=== PATIENT | male | born 1985 | race African-American/Black ===

== ENCOUNTER 2017-03-24 16:48 | Emergency (ER) | payer MEDICAID ==
[2017-03-24 16:56] VITALS: BP 128/73
--- NOTE | 2017-03-24 17:37 | EDM.PDOC ---
ED HPI Trauma - General Chief Complaint: Upper Extremity Injury/Pain Stated Complaint: right wrist injury Time Seen by Provider: 03/24/17 17:21 Source: Reports: Patient History Limitations: Reports: No limitations - History of Present Illness INITIAL COMMENTS - FREE TEXT/NARRATIVE: Patient woke up with soreness and mild swelling on back of right hand near wrist this morning. Denies any specific injury. Was moving boxes/furniture yesterday. Had some discomfort before going to bed last night. No history of similar issues in past. No other complaints. Allergies/ADRs: Allergies No Known Allergies Allergy (Verified 03/24/17 16:49) Home Medications: Ambulatory Orders . [No Known Home Meds] 03/24/17 [Confirmed 03/24/17] Past Medical History Other HEENT History: Nasal fx Social & Family History - Tobacco Use Smoking Status *Q: Current Every Day Smoker Years of Tobacco use: 15 Packs/Tins Daily: 1 - Caffeine Use Caffeine Use: Reports: Soda Caffeine Use Comment: Occasional Review of Systems - Review of Systems Review Of Systems: See Below Constitutional: Reports: no symptoms Musculoskeletal: Reports: hand pain. Denies: arm pain, muscle stiffness Skin: Reports: other (Swelling on back of hand/right). Denies: bruising, pruritis, rash, erythema Neurological: Reports: No Symptoms. Denies: Numbness, Tingling, Weakness Trauma Exam - Physical Exam Exam: See Below Exam Limited By: No limitations General Appearance: Reports: alert, WD/WN, no apparent distress Head: Reports: atraumatic, normocephalic Eyes: bilateral eye: EOMI, PERRL Respiratory Exam: Reports: no respiratory distress Extremities: Reports: other (Tender over lower 4th and 5th right metacarpals dorsally. No specific wrist tenderness. Hand otherwise non-tender. NVI. Mild tissue edema over same distribution. Wrist/fingers full ROM. No erythema or bruising noted. Non-focal exam proximal to wrist. ) Course - Vital Signs Last Recorded V/S: Last Vital Signs Temp 37.1 C 03/24/17 16:50 Pulse 99 03/24/17 16:50 Resp 20 03/24/17 16:50 BP 128/73 03/24/17 16:50 Pulse Ox 100 03/24/17 16:50 - Orders/Labs/Meds Orders: Active Orders 24 hr Category Date Time Status Hand Comp Min 3V Rt [CR] Stat Exams 03/24/17 16:59 Taken - Radiology Interpretation Free Text/Narrative:: Hand xray unremarkable for fracture. - Re-Assessments/Exams Free Text/Narrative Re-Assessment/Exam: 03/24/17 21:14 Wrist splint placed on right hand. Patient felt more comfortable with the subsequent compression. Possible broken blood vessel vs tendonitis. Conservative treatment. Splint/rest/ice/elevate. Watch for changes. Follow up at clinic if not improved within 2-3 days. Departure - Departure Time of Disposition: 17:35 Disposition: Home, Self-Care 01 Condition: good Clinical Impression: Right wrist pain, Pain of right hand Referrals: Aden Greenwood SUPERVISOR CARDING [Primary Care Provider] - Forms: ED Department Discharge Additional Instructions: Avoid lifting using right hand. Avoid twisting wrist. Wear splint for comfort and compression. Ice sore area for comfort. If pain is not improving within several days, follow up at clinic on fore re-evaluation. OK to use Aleve 1-2 tablets twice a day for pain/swelling. - My Orders Last 24 Hours: My Active Orders 03/24/17 16:59 Hand Comp Min 3V Rt [CR] Stat - Assessment/Plan Last 24 Hours: My Active Orders 03/24/17 16:59 Hand Comp Min 3V Rt [CR] Stat
== END 2017-03-24 17:40 | disposition home or self-care (01) ==
LOC: LL.ED 16:48
DX: M25.531 Pain in right wrist (principal); M79.641 Pain in right hand; F17.210 Nicotine dependence, cigarettes, uncomplicated
CPT/HCPCS: 29105; 73130-RT; 99283

== ENCOUNTER 2017-05-19 06:15 | Emergency (ER) | payer MEDICAID ==
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
[2017-05-19 07:00] LABS: CHLORIDE,CL 103 mmol/L (98-107); SODIUM,NA 139 mmol/L (136-145)
[2017-05-19] MEDS ORDERED: Potassium Chloride 10 MEQ Tab.ER PO ONE (07:09)
[2017-05-19] MEDS ORDERED: Bacitracin/Neomycin/Polymyxin B Oint 0.9 GM U/D Packet TOP ONE (07:51)
[2017-05-19] MEDS ORDERED: Diphtheria,Pertussis(Acell),Tetanus Vaccine 0.5 ML SDV IM ONE (07:57)
[2017-05-19] MEDS ORDERED: Ibuprofen 400 MG Tab PO ONE (08:17)
[2017-05-19 12:57] VITALS: BP 138/54
== END 2017-05-19 09:00 | disposition home or self-care (01) ==
LOC: LL.ED 06:15
DX: S06.0X0A Concussion without loss of consciousness, initial encounter (principal); S01.01XA Laceration without foreign body of scalp, initial encounter; S01.511A Laceration without foreign body of lip, initial encounter; S20.222A Contusion of left back wall of thorax, initial encounter; F17.210 Nicotine dependence, cigarettes, uncomplicated; Y04.0XXA Assault by unarmed brawl or fight, initial encounter; Y92.009 Unspecified place in unspecified non-institutional (private) residence as the place of occurrence of the external cause
CPT/HCPCS: 12002; 36415; 70450; 80053; 80305; 85025; 85610; 90471; 90715; 99284; A9270; G0480

== ENCOUNTER 2017-07-09 16:31 | Emergency (ER) | payer MEDICAID ==
[2017-07-09 16:36] VITALS: BP 133/62
--- NOTE | 2017-07-09 17:15 | EDM.PDOC ---
ED HPI GENERAL MEDICAL PROBLEM - General Chief Complaint: General Stated Complaint: Cough, L Abd Pain Time Seen by Provider: 07/09/17 16:55 Source of Information: Reports: Patient History Limitations: Reports: No Limitations - History of Present Illness INITIAL COMMENTS - FREE TEXT/NARRATIVE: Patient presents for complaint of cough and left sided abdominal discomfort. Has had loose stools for several days. No nausea/emesis. No fever. Is smoker. Thinks he wheezes a bit when he coughs. Cough is dry. ROS otherwise negative. Left Abdomen Pain Score (Numeric/FACES): 7 - Related Data Allergies Allergy/AdvReac Type Severity Reaction Status Date / Time No Known Allergies Allergy Verified 03/24/17 16:49 Home Meds: Home Meds Albuterol [IJD: Albuterol HFA] 1 puff .XX ASDIRECTED PRN #8 gm 07/09/17 [Rx] Past Medical History Other HEENT History: Nasal fx Social & Family History - Tobacco Use Smoking Status *Q: Current Every Day Smoker Years of Tobacco use: 15 Packs/Tins Daily: 0.5 - Caffeine Use Caffeine Use: Reports: Soda Caffeine Use Comment: Occasional - Recreational Drug Use Recreational Drug Use: Yes Recreational Drug Type: Reports: Marijuana/Hashish ED ROS GENERAL - Review of Systems Review Of Systems: See Below Constitutional: Reports: No Symptoms HEENT: Reports: Rhinitis (mild nasal drainage. ). Denies: Ear Pain, Throat Pain , Throat Swelling Respiratory: Reports: Cough. Denies: Shortness of Breath, Pleuritic Chest Pain , Sputum, Hemoptysis Cardiovascular: Reports: No Symptoms. Denies: Chest Pain GI/Abdominal: Reports: Abdominal Pain, Diarrhea. Denies: Black Stool, Bloody Stool, Constipation, Decreased Appetite, Difficulty Swallowing, Distension, Flatus, Hematemesis, Hematochezia, Melena, Nausea, Vomiting : Reports: No Symptoms Musculoskeletal: Reports: No Symptoms Skin: Reports: No Symptoms Neurological: Reports: No Symptoms. Denies: Headache Psychiatric: Reports: No Symptoms ED EXAM, GENERAL - Physical Exam Exam: See Below Exam Limited By: No Limitations General Appearance: Alert, WD/WN, No Apparent Distress Eye Exam: Bilateral Eye: EOMI, PERRL Ears: Normal External Exam, Normal Canal, Hearing Grossly Normal Nose: Normal Inspection Throat/Mouth: Normal Inspection, Normal Voice, No Airway Compromise Head: Atraumatic, Normocephalic Neck: Normal Inspection, Supple, Non-Tender, Full Range of Motion. No: Lymphadenopathy (L), Lymphadenopathy (R) Respiratory/Chest: No Respiratory Distress, Lungs Clear, Normal Breath Sounds, No Accessory Muscle Use, Chest Non-Tender. No: Rales, Rhonchi, Wheezing Cardiovascular: Normal Peripheral Pulses, Regular Rate, Rhythm, No Edema, No Murmur Peripheral Pulses: 2+: Radial (L), Radial (R) GI/Abdominal: Normal Bowel Sounds, Soft, Non-Tender, No Distention, No Abnormal Bruit Back Exam: No: CVA Tenderness (L), CVA Tenderness (R) Extremities: Normal Inspection, Normal Capillary Refill Neurological: Alert, Oriented, Normal Cognition, Normal Gait Psychiatric: Normal Affect Skin Exam: Warm, Dry, Intact, Normal Color Course - Vital Signs Last Recorded V/S: Last Vital Signs Temp 36.8 C 07/09/17 16:35 Pulse 79 07/09/17 16:35 Resp 16 07/09/17 16:35 BP 133/62 07/09/17 16:35 Pulse Ox 99 07/09/17 16:35 - Orders/Labs/Meds Orders: Active Orders 24 hr Category Date Time Status Abdomen 2V AP Flat Upright [CR] Stat Exams 07/09/17 16:39 Taken Chest 2V [CR] Stat Exams 07/09/17 16:38 Taken CMP [COMPREHENSIVE METABOLIC PN,CMP] [CHEM] Stat Lab 07/09/17 16:40 Ordered UA W/MICROSCOPIC [URIN] Stat Lab 07/09/17 16:40 Uncollected Labs: Laboratory Tests 07/09/17 Range/Units 17:00 WBC 5.2 (4.0-10.2) K/uL RBC 4.73 (4.33-5.41) M/uL Hgb 14.6 (13.1-16.8) g/dL Hct 42.2 (39.0-49.0) % MCV 89.2 (84.0-98.0) fL MCH 30.9 (28.2-33.3) pg MCHC 34.6 (31.7-36.0) g/dL RDW 14.1 (11.2-14.1) % Plt Count 222 (150-350) K/uL Neut % (Auto) 47.5 (45.0-80.0) % Lymph % (Auto) 32.0 (10.0-50.0) % [place] % (Auto) 13.5 (2.0-14.0) % Eos % (Auto) 6.2 H (0.0-5.0) % Baso % (Auto) 0.8 (0.0-2.0) % Neut # (Auto) 2.46 (1.40-7.00) K/uL Lymph # (Auto) 1.66 (0.50-3.50) K/uL [place] # (Auto) 0.70 (0.00-1.00) K/uL Eos # (Auto) 0.32 (0.00-0.50) K/uL Baso # (Auto) 0.04 (0.00-0.20) K/uL - Radiology Interpretation Free Text/Narrative:: Did not note pneumonia upon review of chest xray. Abdomen shows increased bowel gas LUQ, no air/fluid levels. No sign of obstruction. - Re-Assessments/Exams Free Text/Narrative Re-Assessment/Exam: 07/09/17 17:24 CBC normal. Bun/Cr mildly elevated. Suspect this is due to mild dehydration. Patient encourage to drink water and keep hydrated. Rx for Albuterol inhaler dispensed to help with cough. Suspect viral syndrome given the cough, loose stools, and abdominal discomfort. Encouraged patient to quit smoking. Note given to patient for work. He is to follow up as needed if this does not appear to follow a normal viral course. Patient unable to provide urine specimen prior to discharge. He denied having any symptoms of UTI. Departure - Departure Time of Disposition: 17:13 Disposition: Home, Self-Care 01 Condition: Good Clinical Impression: Viral illness - Discharge Information Prescriptions: Albuterol [IJD: Albuterol HFA] 1 puff .XX ASDIRECTED PRN #8 gm PRN Reason: Cough Instructions: Albuterol inhalation powder Referrals: Aden Greenwood, GENERAL SUPERINTENDENT [Primary Care Provider] - Forms: ED Department Discharge, ED Return to Work/School Form Additional Instructions: Watch for changes. Follow up as needed if this does not follow a normal viral course - My Orders Last 24 Hours: My Active Orders 07/09/17 16:38 Chest 2V [CR] Stat 07/09/17 16:39 Abdomen 2V AP Flat Upright [CR] Stat 07/09/17 16:40 CMP [COMPREHENSIVE METABOLIC PN,CMP] [CHEM] Stat UA W/MICROSCOPIC [URIN] Stat - Assessment/Plan Last 24 Hours: My Active Orders 07/09/17 16:38 Chest 2V [CR] Stat 07/09/17 16:39 Abdomen 2V AP Flat Upright [CR] Stat 07/09/17 16:40 CMP [COMPREHENSIVE METABOLIC PN,CMP] [CHEM] Stat UA W/MICROSCOPIC [URIN] Stat
[2017-07-09 17:19] LABS: CHLORIDE,CL 107 mmol/L (98-107); SODIUM,NA 141 mmol/L (136-145)
== END 2017-07-09 17:15 | disposition home or self-care (01) ==
LOC: LL.ED 16:31
DX: B34.9 Viral infection, unspecified (principal); F17.210 Nicotine dependence, cigarettes, uncomplicated
CPT/HCPCS: 36415; 71020; 74020; 80053; 85025; 99284

== ENCOUNTER 2017-09-03 19:07 | Emergency (ER) | payer MEDICAID ==
[2017-09-03] MEDS ORDERED: Ibuprofen 400 MG Tab PO ONE (19:14)
[2017-09-03 19:30] VITALS: BP 137/99
--- NOTE | 2017-09-03 19:35 | EDM.PDOC ---
ED HPI GENERAL MEDICAL PROBLEM - General Chief Complaint: Upper Extremity Injury/Pain Stated Complaint: right shoulder pain Time Seen by Provider: 09/03/17 19:20 Source of Information: Reports: Patient History Limitations: Reports: No Limitations - History of Present Illness INITIAL COMMENTS - FREE TEXT/NARRATIVE: Patient is a 32-year-old who works at [employer] this morning he woke up with right shoulder pain especially abduction and abduction with no problem time range of motion was assessed and patient is able to have significant bleeding good range of motion with active assistance Onset: Today Duration: Hour(s): Location: Reports: Upper Extremity, Right Quality: Reports: Ache, Throbbing Severity: Moderate Improves with: Reports: Movement, Rest Worsens with: Reports: Rest Context: Reports: Other (Unknown) Associated Symptoms: Reports: No Other Symptoms - Related Data Allergies Allergy/AdvReac Type Severity Reaction Status Date / Time No Known Allergies Allergy Verified 09/03/17 19:08 Home Meds: Home Meds . [No Known Home Meds] 09/03/17 [History] Past Medical History Other HEENT History: Nasal fx Social & Family History - Tobacco Use Smoking Status *Q: Current Every Day Smoker Years of Tobacco use: 15 Packs/Tins Daily: 0.5 - Caffeine Use Caffeine Use: Reports: Soda Caffeine Use Comment: Occasional - Recreational Drug Use Recreational Drug Use: Yes Recreational Drug Type: Reports: Marijuana/Hashish Review of Systems - Review of Systems Review Of Systems: See Below Constitutional: Reports: No Symptoms Eyes: Reports: No Symptoms Ears: Reports: No Symptoms Nose: Reports: No Symptoms Mouth/Throat: Reports: No Symptoms Respiratory: Reports: No Symptoms Cardiovascular: Reports: No Symptoms GI/Abdominal: Reports: No Symptoms Genitourinary: Reports: No Symptoms Musculoskeletal: Reports: Other (Patient woke up with right shoulder pain he does complain of pinpoint tenderness in the pectoralis area of the right shoulder) Skin: Reports: No Symptoms Neurological: Reports: No Symptoms Psychiatric: Reports: No Symptoms ED EXAM, GENERAL - Physical Exam Exam: See Below Exam Limited By: No Limitations General Appearance: Alert, WD/WN, No Apparent Distress Ears: Normal External Exam, Normal Canal, Hearing Grossly Normal, Normal TMs Ear Exam: Bilateral Ear: Auricle Normal, Canal Normal, TM normal Nose: Normal Inspection, Normal Mucosa, No Blood Throat/Mouth: Normal Inspection, Normal Lips, Normal Teeth, Normal Gums, Normal Oropharynx, Normal Voice, No Airway Compromise Head: Atraumatic, Normocephalic Neck: Normal Inspection, Supple, Non-Tender, Full Range of Motion Respiratory/Chest: No Respiratory Distress, Lungs Clear, Normal Breath Sounds, No Accessory Muscle Use, Chest Non-Tender Cardiovascular: Normal Peripheral Pulses, Regular Rate, Rhythm, No Edema, No Gallop, No JVD, No Murmur, No Rub GI/Abdominal: Normal Bowel Sounds, Soft, Non-Tender, No Organomegaly, No Distention, No Abnormal Bruit, No Mass (Male) Exam: No Hernia, Normal Inspection, Normal Prostate, Circumcised Rectal (Males) Exam: Normal Exam, Normal Rectal Tone, Prostate Normal Back Exam: Normal Inspection, Full Range of Motion, NT Extremities: Limited Range of Motion, Other (With pain to abduction and adduction) Neurological: Alert, Oriented, CN II-XII Intact, Normal Cognition, Normal Gait, Normal Reflexes, No Motor/Sensory Deficits Psychiatric: Normal Affect, Normal Mood Skin Exam: Warm, Dry, Intact, Normal Color, No Rash Lymphatic: No Adenopathy Course - Orders/Labs/Meds Meds: Medications Discontinued Medications Generic Name Dose Route Start Last Admin Trade Name Freq PRN Reason Stop Dose Admin Ibuprofen 400 mg 09/03/17 19:14 09/03/17 19:22 Motrin PO 09/03/17 19:15 400 mg ONETIME ONE Administration Departure - Departure Time of Disposition: 19:34 Disposition: Home, Self-Care 01 Clinical Impression: Rotator cuff tear - Discharge Information Referrals: Aden Greenwood EXPENDITURE REQUISITION CLERK [Primary Care Provider] - Care Plan Goals: Patient sent home with exercise of rotation and Motrin 400 every 6 hours patient may return to work as tolerated he is to follow-up with primary in clinic if not better for MRI
== END 2017-09-03 20:00 | disposition home or self-care (01) ==
LOC: LL.ED 19:07
DX: M75.101 Unspecified rotator cuff tear or rupture of right shoulder, not specified as traumatic (principal); F17.210 Nicotine dependence, cigarettes, uncomplicated
CPT/HCPCS: 99283; A9270

== ENCOUNTER 2017-11-14 01:10 | Emergency (ER) | payer BC, OTHER ==
[2017-11-14] MEDS ORDERED: predniSONE 20 MG Tab PO ONE (02:06)
[2017-11-14] MEDS ORDERED: Ketorolac 10 MG Tab PO ONE (02:07)
[2017-11-14] MEDS ORDERED: Cyclobenzaprine 10 MG Tab PO ONE (02:07)
--- NOTE | 2017-11-14 02:15 | EDM.PDOC ---
ED HPI GENERAL MEDICAL PROBLEM - General Chief Complaint: Chest Pain Stated Complaint: right sided chest pain Time Seen by Provider: 11/14/17 01:54 Source of Information: Reports: Patient History Limitations: Reports: No Limitations - History of Present Illness INITIAL COMMENTS - FREE TEXT/NARRATIVE: Patient brought in by EMS after he had complaint of right sided chest pain while at work. 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 He suddenly developed right anterior chest pain around right clavicle level. Notes it is worse with deep breathing as well as when he turns his head. Better if he keeps still. Had brief episode of nausea/dizziness while in ambulance on way to ER. Denies prior similar episodes of pain. Denies any specific injury. No SOB. No respiratory changes. Patient is smoker. No emesis or other GI changes. Nausea and dizziness have resolved. No recent viral illnesses or other acute illnesses. No diaphoresis. Pain does not radiate anywhere. Denies other pain. Right Chest Pain Score (Numeric/FACES): 7 - Related Data Allergies Allergy/AdvReac Type Severity Reaction Status Date / Time No Known Allergies Allergy Verified 11/14/17 01:34 Home Meds: Home Meds . [No Known Home Meds] 09/03/17 [History] Past Medical History Other HEENT History: Nasal fx Social & Family History - Tobacco Use Smoking Status *Q: Current Every Day Smoker Years of Tobacco use: 15 Packs/Tins Daily: 0.5 - Caffeine Use Caffeine Use: Reports: Coffee, Energy Drinks, Soda Caffeine Use Comment: Occasional - Recreational Drug Use Recreational Drug Use: No Recreational Drug Type: Reports: Marijuana/Hashish ED ROS GENERAL - Review of Systems Review Of Systems: See Below Constitutional: Reports: No Symptoms HEENT: Reports: No Symptoms Respiratory: Reports: No Symptoms Cardiovascular: Reports: Chest Pain, Lightheadedness (resolved). Denies: Dyspnea on Exertion, Edema, Palpitations, Syncope GI/Abdominal: Reports: Nausea (resolved). Denies: Abdominal Pain, Black Stool, Constipation, Diarrhea, Vomiting : Reports: No Symptoms Musculoskeletal: Reports: Neck Pain (near right anterior base of neck when patient turns neck. ) Skin: Reports: No Symptoms Neurological: Reports: No Symptoms. Denies: Headache, Numbness Psychiatric: Reports: No Symptoms Hematologic/Lymphatic: Reports: No Symptoms Immunologic: Reports: No Symptoms ED EXAM, GENERAL - Physical Exam Exam: See Below Exam Limited By: No Limitations General Appearance: Alert, WD/WN, No Apparent Distress Eye Exam: Bilateral Eye: EOMI, PERRL Ears: Normal External Exam Nose: Normal Inspection Throat/Mouth: Normal Inspection, Normal Lips, Normal Voice, No Airway Compromise Head: Atraumatic, Normocephalic Neck: Supple, Full Range of Motion, Other (tender with palpation near distal insertion SCM muscle on right towards midline. ). No: Lymphadenopathy (L), Lymphadenopathy (R) Respiratory/Chest: No Respiratory Distress, Lungs Clear, Normal Breath Sounds, No Accessory Muscle Use, Other (Chest tender to palpation around superior anterior chest wall near top of sternum and lateral to that. Reproduces pain. ) Cardiovascular: Normal Peripheral Pulses, Regular Rate, Rhythm, No Edema, No Murmur Peripheral Pulses: 2+: Radial (L), Radial (R) GI/Abdominal: Normal Bowel Sounds, Soft, Non-Tender (Male) Exam: Deferred Rectal (Males) Exam: Deferred Back Exam: Normal Inspection Extremities: Normal Inspection, Normal Range of Motion, Non-Tender, No Pedal Edema, Normal Capillary Refill Neurological: Alert, Oriented, Normal Cognition, Normal Gait, No Motor/Sensory Deficits Psychiatric: Normal Affect, Normal Mood Skin Exam: Warm, Dry, Normal Color, No Rash EKG INTERPRETATION EKG Date: 11/14/17 Time: 01:23 Rhythm: Other (Sinus Bradycardia) Rate (Beats/Min): 58 [place]: Normal P-Wave: Present QRS: Normal ST-T: Normal QT: Normal Comparison: NA - No Prior EKG Course - Vital Signs Last Recorded V/S: Last Vital Signs Temp 36.7 C 11/14/17 01:27 Pulse 73 11/14/17 01:27 Resp 16 11/14/17 01:27 BP 125/78 11/14/17 01:27 Pulse Ox 100 11/14/17 01:27 - Orders/Labs/Meds Orders: Active Orders 24 hr Category Date Time Status EKG Documentation Completion [RC] ASDIRECTED Care 11/14/17 01:55 Ordered Chest 2V [CR] Stat Exams 11/14/17 02:05 Ordered Sodium Chloride 0.9% [Normal Saline] 500 ml Med 11/14/17 02:29 Ordered IV ONETIME Medication Orders Sodium Chloride (Normal Saline) 500 mls @ 999 mls/hr IV ONETIME ONE Stop: 11/14/17 02:59 Last Admin: 11/14/17 02:37 Dose: 999 mls/hr Labs: Laboratory Tests 11/14/17 11/14/17 11/14/17 Range/Units 02:08 02:08 02:08 WBC (4.0-10.2) K/uL RBC (4.33-5.41) M/uL Hgb (13.1-16.8) g/dL Hct (39.0-49.0) % MCV (84.0-98.0) fL MCH (28.2-33.3) pg MCHC (31.7-36.0) g/dL RDW (11.2-14.1) % Plt Count (150-350) K/uL Neut % (Auto) (45.0-80.0) % Lymph % (Auto) (10.0-50.0) % [place] % (Auto) (2.0-14.0) % Eos % (Auto) (0.0-5.0) % Baso % (Auto) (0.0-2.0) % Neut # (Auto) (1.40-7.00) K/uL Lymph # (Auto) (0.50-3.50) K/uL [place] # (Auto) (0.00-1.00) K/uL Eos # (Auto) (0.00-0.50) K/uL Baso # (Auto) (0.00-0.20) K/uL Sodium 137 (136-145) mmol/L Potassium 3.9 (3.5-5.1) mmol/L Chloride 103 (98-107) mmol/L Carbon Dioxide 22.9 (21.0-32.0) mmol/L BUN 23 H (7-18) mg/dL Creatinine 1.22 H (0.51-1.17) mg/dL Est Cr Clr Drug Dosing 101.97 mL/min Estimated GFR (MDRD) > 60 mL/min Glucose 97 (74-106) mg/dL Calcium 8.7 (8.5-10.1) mg/dL Magnesium 1.8 (1.8-2.4) mg/dL Total Bilirubin 0.4 (0.2-1.0) mg/dL AST 27 (15-37) U/L ALT 33 (12-78) U/L Alkaline Phosphatase 65 (46-116) IU/L Creatine Kinase 413 H (26-308) U/L Creatine Kinase Index 1.0 (0.0-2.5) % CK-MB (CK-2) 4.00 H (0.00-3.60) ng/mL Troponin I 0.000 (0.000-0.056) ng/mL Total Protein 7.2 (6.4-8.2) g/dL Albumin 3.8 (3.4-5.0) g/dL 11/14/17 Range/Units 02:08 WBC 4.5 (4.0-10.2) K/uL RBC 4.60 (4.33-5.41) M/uL Hgb 13.8 (13.1-16.8) g/dL Hct 39.8 (39.0-49.0) % MCV 86.5 (84.0-98.0) fL MCH 30.0 (28.2-33.3) pg MCHC 34.7 (31.7-36.0) g/dL RDW 13.2 (11.2-14.1) % Plt Count 231 (150-350) K/uL Neut % (Auto) 34.5 L (45.0-80.0) % Lymph % (Auto) 47.5 (10.0-50.0) % [place] % (Auto) 12.9 (2.0-14.0) % Eos % (Auto) 4.2 (0.0-5.0) % Baso % (Auto) 0.9 (0.0-2.0) % Neut # (Auto) 1.56 (1.40-7.00) K/uL Lymph # (Auto) 2.14 (0.50-3.50) K/uL [place] # (Auto) 0.58 (0.00-1.00) K/uL Eos # (Auto) 0.19 (0.00-0.50) K/uL Baso # (Auto) 0.04 (0.00-0.20) K/uL Sodium (136-145) mmol/L Potassium (3.5-5.1) mmol/L Chloride (98-107) mmol/L Carbon Dioxide (21.0-32.0) mmol/L BUN (7-18) mg/dL Creatinine (0.51-1.17) mg/dL Est Cr Clr Drug Dosing mL/min Estimated GFR (MDRD) mL/min Glucose (74-106) mg/dL Calcium (8.5-10.1) mg/dL Magnesium (1.8-2.4) mg/dL Total Bilirubin (0.2-1.0) mg/dL AST (15-37) U/L ALT (12-78) U/L Alkaline Phosphatase (46-116) IU/L Creatine Kinase (26-308) U/L Creatine Kinase Index (0.0-2.5) % CK-MB (CK-2) (0.00-3.60) ng/mL Troponin I (0.000-0.056) ng/mL Total Protein (6.4-8.2) g/dL Albumin (3.4-5.0) g/dL Meds: Medications Generic Name Dose Route Start Last Admin Trade Name Freq PRN Reason Stop Dose Admin Sodium Chloride 500 mls @ 999 mls/hr 11/14/17 02:29 11/14/17 02:37 Normal Saline IV 11/14/17 02:59 999 mls/hr ONETIME ONE Administration Discontinued Medications Generic Name Dose Route Start Last Admin Trade Name Freq PRN Reason Stop Dose Admin Cyclobenzaprine HCl 10 mg 11/14/17 02:07 Flexeril PO 11/14/17 02:08 ONETIME ONE Ketorolac Tromethamine 10 mg 11/14/17 02:07 11/14/17 02:29 Toradol PO 11/14/17 02:08 10 mg ONETIME ONE Administration Prednisone 40 mg 11/14/17 02:06 11/14/17 02:29 Prednisone PO 11/14/17 02:07 40 mg ONETIME ONE Administration - Radiology Interpretation Free Text/Narrative:: Chest film overall unremarkable. No focal infiltrates, no pneumo noted. - Re-Assessments/Exams Free Text/Narrative Re-Assessment/Exam: 11/14/17 02:21 Suspect musculoskeletal cause for patient's complaint given history and exam. Toradol given. Baseline tests as well as Troponin and Chest film ordered. Free Text/Narrative Re-Assessment/Exam: 11/14/17 02:41 Mild bump noted for Bun/Cr. Small bolus of fluid given. Troponin zero. Ck as well as CKMB mildly elevated. 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 Departure - Departure Time of Disposition: 02:58 Disposition: Home, Self-Care 01 Condition: Good Clinical Impression: Right-sided chest wall pain - Discharge Information Instructions: Nonspecific Chest Pain, [id number] Forms: ED Department Discharge Additional Instructions: Take it easy for the next few days. No heavy lifting. You may try Tylenol or Ibuprofen or Aleve as needed to help with pain in addition to taking the medicines you received from us (Tramadol and Flexeril) Ice applied over sore area may be helpful. If pain persists follow up Friday at clinic for recheck and further work restrictions as needed. Follow up otherwise as needed. - My Orders Last 24 Hours: My Active Orders 11/14/17 01:55 EKG Documentation Completion [RC] ASDIRECTED 11/14/17 02:05 Chest 2V [CR] Stat 11/14/17 02:29 Sodium Chloride 0.9% [Normal Saline] 500 ml IV ONETIME - Assessment/Plan Last 24 Hours: My Active Orders 11/14/17 01:55 EKG Documentation Completion [RC] ASDIRECTED 11/14/17 02:05 Chest 2V [CR] Stat 11/14/17 02:29 Sodium Chloride 0.9% [Normal Saline] 500 ml IV ONETIME
[2017-11-14 02:26] LABS: CHLORIDE,CL 103 mmol/L (98-107); SODIUM,NA 137 mmol/L (136-145)
[2017-11-14] MEDS ORDERED: Sodium Chloride 0.9% 500 ML IV ONE (02:29)
[2017-11-14 05:34] VITALS: BP 113/66
== END 2017-11-14 03:45 | disposition home or self-care (01) ==
LOC: LL.ED 01:10
DX: R07.89 Other chest pain (principal); F17.210 Nicotine dependence, cigarettes, uncomplicated
CPT/HCPCS: 36415; 71020; 80053; 82550; 82553; 83735; 84484; 85025; 93005; 99284; A9270; J7040

== ENCOUNTER 2017-12-30 20:50 | Observation (INO) | payer BC, OTHER ==
[2017-12-30] MEDS ORDERED: Sodium Chloride 0.9% 10 ML Syringe FLUSH PRN ×2 (21:15→22:50)
[2017-12-30] MEDS ORDERED: Famotidine 20 MG/2 ML SDV IVPUSH ONE (21:15)
--- NOTE | 2017-12-30 21:17 | EDM.PDOC ---
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 [RC] ASDIRECTED Peripheral IV Care [RC] . DIRECTED Pulse Oximetry [RC] CONTINUOUS Up With Assistance [RC] PFP Vital Signs [RC] PFP Chest 1V Frontal [CR] Stat Sodium Chloride 0.9% [Saline Flush] 10 ml FLUSH ASDIRECTED PRN Obtain Past Medical Record [OM.PC] Urgent Peripheral IV Insertion Adult [OM.PC] Stat Resuscitation Status Stat 12/30/17 21:16 Head wo Cont [CT] Stat 12/30/17 21:28 PROLACTIN [REF] Stat 12/30/17 Breakfast Nothing per Oral Now Diet [DIET] - Assessment/Plan Admission H&P: Please use this note as an admission H&P Last 24 Hours: My Active Orders 12/30/17 21:15 Cardiac Monitoring [RC] . DIRECTED EKG Documentation Completion [RC] ASDIRECTED Peripheral IV Care [RC] . DIRECTED Pulse Oximetry [RC] CONTINUOUS Up With Assistance [RC] PFP Vital Signs [RC] PFP Chest 1V Frontal [CR] Stat Sodium Chloride 0.9% [Saline Flush] 10 ml FLUSH ASDIRECTED PRN Obtain Past Medical Record [OM.PC] Urgent Peripheral IV Insertion Adult [OM.PC] Stat Resuscitation Status Stat 12/30/17 21:16 Head wo Cont [CT] Stat 12/30/17 21:28 PROLACTIN [REF] Stat 12/30/17 Breakfast Nothing per Oral Now Diet [DIET] Assessment:: As above Plan: As above. Extensive precautions were given to the patient, who is in agreement with the treatment plan. The patient's condition is stable enough for observation status and general supervision.
[2017-12-30 22:01] LABS: CHLORIDE,CL 105 mmol/L (98-107); SODIUM,NA 142 mmol/L (136-145)
[2017-12-30] MEDS ORDERED: Temazepam 15 MG Cap PO PRN (22:50)
[2017-12-30] MEDS ORDERED: Acetaminophen 325 MG Tab PO PRN (22:50)
[2017-12-30] MEDS: Lactated Ringers 1,000 ML IV SCH (23:29)
[2017-12-30] MEDS ORDERED: FLU Vacc QS 2017-18 (36mos UP)/PF 60 MCG/0.5 ML Syringe IM ONE (23:30)
[2017-12-31] MEDS: Lactated Ringers 1,000 ML IV SCH (06:08)
[2017-12-31 07:54] LABS: CHLORIDE,CL 105 mmol/L (98-107); SODIUM,NA 140 mmol/L (136-145)
--- NOTE | 2017-12-31 08:19 | PCM.DCSUM1 ---
Discharge Summary - Hospital Course HPI Initial Comments: See emergency room note/admission H&P Brief History: See emergency room note/admission H&P - Discharge Data Discharge Date: 12/31/17 Discharge Disposition: Home, Self-Care 01 Condition: Good - Discharge Diagnosis/Problem(s) (1) Syncope SNOMED Code(s): 475818658 ICD Code: R55 - SYNCOPE AND COLLAPSE Status: Acute Priority: High Current Visit: Yes Onset Date: 12/30/17 Problem Details: No neurological deficits with stable neurological checks during hospitalization. Note true syncopal episode prior to admission with previous history of syncope at age 16 with no previous workup. CT scan normal on admission with echocardiogram to be conducted [facility] on an outpatient basis. No direct evidence of seizure activity, postictal sedation, etc.. Previous inferior wall EKG nonspecific changes have resolved with otherwise normal cardiac enzymes. Further cardiac and/or neurological workup depending on his clinical course. No chest pain or true anginal complaints. Close follow-up by his regular provider as per discharge instructions. Work excuse providedBobcat. Activity restrictions, injury precautions, etc. were discussed. Lipid panel and glycosylated hemoglobin were normal today. Consider Cardiolite stress test pending on echocardiogram results as above Qualifiers: Syncope type: unspecified Qualified Code(s): R55 - Syncope and collapse (2) Vertigo SNOMED Code(s): 476059499 ICD Code: R42 - DIZZINESS AND GIDDINESS Status: Acute Priority: High Current Visit: Yes Onset Date: ~12/28/17 Problem Details: Nonspecific vertigo with possible viral etiology on admission. Only mild persistent left frontal headache at this time with resolution of previous dizziness, etc.. No IM Depo-Medrol will be needed with meclizine at discharge as per discharge instructions (3) Elevated CPK SNOMED Code(s): 284269706 ICD Code: R74.8 - ABNORMAL LEVELS OF OTHER SERUM ENZYMES Status: Acute Priority: Medium Current Visit: Yes Onset Date: 12/30/17 Problem Details: CK elevation of unknown etiology improved with IV fluids. No history of significant trauma from his syncopal episode. No direct evidence of rhabdomyolysis. No history of known seizure activity with prolactin level drawn with results pending. Note generalized myalgias with possible recent viral type symptoms. Myoglobin ordered with results pending (4) Osteoarthritis SNOMED Code(s): 733052970 ICD Code: M19.90 - UNSPECIFIED OSTEOARTHRITIS, UNSPECIFIED SITE Status: Chronic Priority: Medium Current Visit: Yes Problem Details: Otherwise stable by history Qualifiers: Osteoarthritis location: multiple joints Osteoarthritis type: primary Qualified Code(s): M15.0 - Primary generalized (osteo)arthritis (5) Renal insufficiency SNOMED Code(s): 462328286 ICD Code: N28.9 - DISORDER OF KIDNEY AND URETER, UNSPECIFIED Status: Chronic Priority: Medium Current Visit: Yes Problem Details: Persistent renal insufficiency despite IV fluids. Close follow-up by his regular provider (6) Tobacco abuse counseling SNOMED Code(s): 893644912, 418197376 ICD Code: Z71.6 - TOBACCO ABUSE COUNSELING Status: Chronic Priority: Medium Current Visit: Yes Problem Details: Tobacco cessation encouraged with information provided at time of discharge (7) Illicit drug use, continuous SNOMED Code(s): 897002256 ICD Code: F19.90 - OTHER PSYCHOACTIVE SUBSTANCE USE, UNSPECIFIED, UNCOMPLICATED Status: Chronic Priority: Medium Current Visit: Yes Problem Details: Discontinuation of marijuana is advisable with borderline mixed anxiety depression by exam. Note positive urine drug screen. Continue to observe closely by regular provider - Patient Summary/Data Operative Procedure(s) Performed: None Complications: None Consults: None Labs Pending at D/C: Prolactin level, myoglobin of urine, and urine culture and sensitivity Recommended Follow-up Testing/Procedures: As per discharge instructions Planned Operative Procedure(s) after DC: None Hospital Course: The patient was admitted on telemetry in observation status with neurological checks and no evidence of neurological deficits during the entire hospitalization. Note resolution of symptoms at time of discharge with only minimal persistent headache as above. No complications during this hospitalization, including any chest pain or anginal type symptoms. - Patient Instructions Diet: Heart Healthy Diet Activity: As Tolerated Activity, Other: Strict fall and injury precautions as discussed Driving: May Drive Today Showering/Bathing: May Shower Notify Provider of: Fever, Increased Pain, Nausea and/or Vomiting Other/Special Instructions: 1. Followup with your regular provider in 7-10 days as directed with recommended basic metabolic panel, CK, CK-MB, and troponin I. 2. Work excuse- See Form. 3. Stop all tobacco and marijuana use [facility] as directed/per provided information and consider contacting [employer] [facility], etc.. 4. Echocardiogram in this facility next week with this facility to call you at a later time with specific date and time. I will call you on that day with preliminary verbal report of this evaluation. Do not leave the facility prior to speaking with me. 5. Sedation precautions with OTC meclizine with this medication not to be used prior to or during work. - Discharge Plan Prescriptions/Med Rec: Meclizine [Antivert] 25 mg PO Q6H PRN #30 tab.chew PRN Reason: Dizziness Home Medications: Home Meds Acetaminophen [Tylenol Extra Strength] 1,000 mg PO Q6H 12/30/17 [History] Meclizine [Antivert] 25 mg PO Q6H PRN #30 tab.chew 12/31/17 [Rx] Patient Handouts: Syncope, [id number] Forms: ED Department Discharge Referrals: Aden Greenwood, [facility] [Primary Care Provider] - - Discharge Summary/Plan Comment DC Time >30 min.: Yes (Coordination of care ) Discharge Summary/Plan Comment: As above. Extensive precautions were given to the patient, who is in agreement with the treatment plan. See Patient Instructions for further treatment and plan. - General Info Date of Service: 12/31/17 Admission Dx/Problem (Free Text: Syncope Functional Status: Reports: Pain Controlled, Tolerating Diet, Ambulating, Urinating, New Symptoms. Denies: Incentive Spirometry Numeric/FACES Score: 1 (Headache) - Review of Systems General: Reports: No Symptoms. Denies: Fever, Weakness, Fatigue, Malaise, Chills, Night Sweats, Appetite HEENT: Reports: Headaches. Denies: Ear Pain, Eye Pain, Post Nasal Drip, Sinus Congestion, Sore Throat, Rhinitis, Visual Changes Pulmonary: Reports: No Symptoms. Denies: Shortness of Breath, Pleuritic Chest Pain, Cough, Sputum, Wheezing Cardiovascular: Reports: No Symptoms. Denies: Chest Pain, Palpitations, Dyspnea on Exertion, Orthopnea, PND, Edema, Lightheadedness Gastrointestinal: Reports: No Symptoms, Other (No bowel movement during this hospitalization). Denies: Abdominal Pain, Constipation, Decreased Appetite, Diarrhea, Difficulty Swallowing, Flatus, Hematochezia, Melena, Nausea, Vomiting Genitourinary: Reports: No Symptoms. Denies: Dysuria, Frequency, Burning, Pain , Urgency, Incontinence, Hematuria, Retention, Flank Pain Musculoskeletal: Reports: No Symptoms. Denies: Neck Pain, Shoulder Pain, Arm Pain, Hand Pain, Back Pain, Leg Pain, Foot Pain, Joint Pain, Joint Swelling Skin: Reports: No Symptoms. Denies: Diaphoresis, Bruising Neurological: Reports: Headache. Denies: Confusion, Dizziness, Numbness, Paresthesia, Pre-Existing Deficit, Seizure, Tingling, Trouble Speaking, Difficulty Walking, Weakness Psychiatric: Reports: No Symptoms. Denies: Confusion, Depression, Mood Lability , Anxiety, Agitation, Cravings, Hallucinations, Suicidal Ideation, Homicidal Ideation - Patient Data Vitals - Most Recent: Last Vital Signs Temp 36.6 C 12/30/17 23:40 Pulse 67 12/31/17 04:45 Resp 16 12/31/17 04:45 BP 113/58 L 12/31/17 04:45 Pulse Ox 99 12/31/17 04:45 Vital Signs - 24 hr 12/30/17 12/30/17 12/30/17 20:55 21:10 21:43 Temperature [ 36.8 C Oral] Pulse, 83 65 61 Peripheral [ Right Brachial] Respiratory 15 17 12 Rate Blood Pressure 145/85 H 128/81 133/85 [Right Upper Arm] O2 Sat by Pulse 100 100 100 Oximetry 12/30/17 12/30/17 12/30/17 22:09 22:50 23:40 Temperature [ 36.6 C Oral] Pulse, 63 71 Peripheral [ Right Brachial] Respiratory 18 20 Rate Blood Pressure 134/91 H 140/65 [Right Upper Arm] O2 Sat by Pulse 98 100 100 Oximetry 12/31/17 04:45 Temperature [ Oral] Pulse, 67 Peripheral [ Right Brachial] Respiratory 16 Rate Blood Pressure 113/58 L [Right Upper Arm] O2 Sat by Pulse 99 Oximetry Weight - Most Recent: 90.718 kg I&O - Last 24 hours: Intake & Output 12/30/17 12/31/17 12/31/17 22:59 06:59 14:59 Intake Total 480 Output Total 100 1100 Balance 380 -1100 Imaging Impressions - Last 24 hrs: monitoring tech showed normal sinus rhythm with heart rate in the 60s to 70s with previous borderline bradycardia in the high 50s in the emergency room. No ectopy or arrhythmia. Chest x-ray, portable, on 1/30/18 shows no evidence of cardiomegaly, CHF, pulmonary infiltrates, pneumothorax, etc. CT of the head without contrast on 12/30/17 showed no acute abnormalities as per emergency room note with final report received Lab Results - Last 24 hrs: Laboratory Results - last 24 hr 12/30/17 12/30/17 12/31/17 Range/Units 23:45 23:45 06:57 WBC 4.4 (4.0-10.2) K/uL RBC 4.88 (4.33-5.41) M/uL Hgb 14.7 (13.1-16.8) g/dL Hct 42.9 (39.0-49.0) % MCV 87.9 (84.0-98.0) fL MCH 30.1 (28.2-33.3) pg MCHC 34.3 (31.7-36.0) g/dL RDW 14.0 (11.2-14.1) % Plt Count 213 (150-350) K/uL Neut % (Auto) 40.0 L (45.0-80.0) % Lymph % (Auto) 41.3 (10.0-50.0) % [place] % (Auto) 13.9 (2.0-14.0) % Eos % (Auto) 3.9 (0.0-5.0) % Baso % (Auto) 0.9 (0.0-2.0) % Neut # (Auto) 1.75 (1.40-7.00) K/uL Lymph # (Auto) 1.81 (0.50-3.50) K/uL [place] # (Auto) 0.61 (0.00-1.00) K/uL Eos # (Auto) 0.17 (0.00-0.50) K/uL Baso # (Auto) 0.04 (0.00-0.20) K/uL Sodium (136-145) mmol/L Potassium (3.5-5.1) mmol/L Chloride (98-107) mmol/L Carbon Dioxide (21.0-32.0) mmol/L BUN (7-18) mg/dL Creatinine (0.51-1.17) mg/dL Est Cr Clr Drug Dosing mL/min Estimated GFR (MDRD) mL/min Glucose (74-106) mg/dL Hemoglobin A1c (4.3-5.7) % Calcium (8.5-10.1) mg/dL Total Bilirubin (0.2-1.0) mg/dL AST (15-37) U/L ALT (12-78) U/L Alkaline Phosphatase (46-116) IU/L Creatine Kinase (26-308) U/L Creatine Kinase Index (0.0-2.5) % CK-MB (CK-2) (0.00-3.60) ng/mL Troponin I (0.000-0.056) ng/mL Total Protein (6.4-8.2) g/dL Albumin (3.4-5.0) g/dL Triglycerides (30-150) mg/dL Cholesterol (100-200) mg/dL LDL Cholesterol, Calc (0-100) mg/dL HDL Cholesterol (40-60) mg/dL Specimen Type Urincc Urine Color Yellow Urine Appearance Clear Urine pH 7.0 (5.0-9.0) Ur Specific [place] 1.020 (1.005-1.030) Urine Protein Negative (NEGATIVE) mg/dL Urine Glucose (UA) Negative (NEGATIVE) mg/dL Urine Ketones Negative (NEGATIVE) mg/dL Urine Occult Blood Negative (NEGATIVE) Urine Nitrite Negative (NEGATIVE) Urine Bilirubin Negative (NEGATIVE) Urine Urobilinogen 0.2 (0.2-1.0) E.U./dL Ur Leukocyte Esterase Negative (NEGATIVE) Urine RBC 0-5 /HPF Urine WBC Not seen /HPF Ur Epithelial Cells Rare /LPF Urine Bacteria Rare (NONE TO FEW) /HPF Urine Opiates Screen Negative (NEGATIVE) Urine Methadone Screen Negative (NEGATIVE) U Acetaminophen Screen Negative Ur Barbiturates Screen Negative (NEGATIVE) Ur Tricyclics Screen Negative (NEGATIVE) Ur Phencyclidine Scrn Negative (NEGATIVE) Ur Amphetamine Screen Negative (NEGATIVE) U Methamphetamines Scrn Negative (NEGATIVE) U Benzodiazepines Scrn Negative (NEGATIVE) U Cocaine Metab Screen Negative (NEGATIVE) U Marijuana (THC) Screen Positive (NEGATIVE) 12/31/17 12/31/17 Range/Units 06:57 06:57 WBC (4.0-10.2) K/uL RBC (4.33-5.41) M/uL Hgb (13.1-16.8) g/dL Hct (39.0-49.0) % MCV (84.0-98.0) fL MCH (28.2-33.3) pg MCHC (31.7-36.0) g/dL RDW (11.2-14.1) % Plt Count (150-350) K/uL Neut % (Auto) (45.0-80.0) % Lymph % (Auto) (10.0-50.0) % [place] % (Auto) (2.0-14.0) % Eos % (Auto) (0.0-5.0) % Baso % (Auto) (0.0-2.0) % Neut # (Auto) (1.40-7.00) K/uL Lymph # (Auto) (0.50-3.50) K/uL [place] # (Auto) (0.00-1.00) K/uL Eos # (Auto) (0.00-0.50) K/uL Baso # (Auto) (0.00-0.20) K/uL Sodium 140 (136-145) mmol/L Potassium 4.1 (3.5-5.1) mmol/L Chloride 105 (98-107) mmol/L Carbon Dioxide 28.8 (21.0-32.0) mmol/L BUN 14 (7-18) mg/dL Creatinine 1.34 H (0.51-1.17) mg/dL Est Cr Clr Drug Dosing 90.31 mL/min Estimated GFR (MDRD) > 60 mL/min Glucose 92 (74-106) mg/dL Hemoglobin A1c 5.4 (4.3-5.7) % Calcium 9.0 (8.5-10.1) mg/dL Total Bilirubin 0.6 (0.2-1.0) mg/dL AST 32 (15-37) U/L ALT 40 (12-78) U/L Alkaline Phosphatase 62 (46-116) IU/L Creatine Kinase 398 H (26-308) U/L Creatine Kinase Index 0.7 (0.0-2.5) % CK-MB (CK-2) 2.80 (0.00-3.60) ng/mL Troponin I 0.000 (0.000-0.056) ng/mL Total Protein 6.9 (6.4-8.2) g/dL Albumin 3.7 (3.4-5.0) g/dL Triglycerides 48 (30-150) mg/dL Cholesterol 156 (100-200) mg/dL LDL Cholesterol, Calc 104 H (0-100) mg/dL HDL Cholesterol 42 (40-60) mg/dL Specimen Type Urine Color Urine Appearance Urine pH (5.0-9.0) Ur Specific [place] (1.005-1.030) Urine Protein (NEGATIVE) mg/dL Urine Glucose (UA) (NEGATIVE) mg/dL Urine Ketones (NEGATIVE) mg/dL Urine Occult Blood (NEGATIVE) Urine Nitrite (NEGATIVE) Urine Bilirubin (NEGATIVE) Urine Urobilinogen (0.2-1.0) E.U./dL Ur Leukocyte Esterase (NEGATIVE) Urine RBC /HPF Urine WBC /HPF Ur Epithelial Cells /LPF Urine Bacteria (NONE TO FEW) /HPF Urine Opiates Screen (NEGATIVE) Urine Methadone Screen (NEGATIVE) U Acetaminophen Screen Ur Barbiturates Screen (NEGATIVE) Ur Tricyclics Screen (NEGATIVE) Ur Phencyclidine Scrn (NEGATIVE) Ur Amphetamine Screen (NEGATIVE) U Methamphetamines Scrn (NEGATIVE) U Benzodiazepines Scrn (NEGATIVE) U Cocaine Metab Screen (NEGATIVE) U Marijuana (THC) Screen (NEGATIVE) Laboratory Tests 12/30/17 12/30/17 12/30/17 Range/Units 21:18 21:18 21:18 WBC 4.9 (4.0-10.2) K/uL RBC 4.86 (4.33-5.41) M/uL Hgb 14.6 (13.1-16.8) g/dL Hct 42.7 (39.0-49.0) % MCV 87.9 (84.0-98.0) fL MCH 30.0 (28.2-33.3) pg MCHC 34.2 (31.7-36.0) g/dL RDW 14.1 (11.2-14.1) % Plt Count 226 (150-350) K/uL Neut % (Auto) 30.0 L (45.0-80.0) % Lymph % (Auto) 53.1 H (10.0-50.0) % [place] % (Auto) 13.0 (2.0-14.0) % Eos % (Auto) 3.3 (0.0-5.0) % Baso % (Auto) 0.6 (0.0-2.0) % Neut # (Auto) 1.46 (1.40-7.00) K/uL Lymph # (Auto) 2.58 (0.50-3.50) K/uL [place] # (Auto) 0.63 (0.00-1.00) K/uL Eos # (Auto) 0.16 (0.00-0.50) K/uL Baso # (Auto) 0.03 (0.00-0.20) K/uL PT 11.4 (9.8-11.7) SEC INR 1.1 APTT 30.3 H (22.1-29.8) SEC D-Dimer, Quantitative < 100 (0-400) ng/mL Sodium (136-145) mmol/L Potassium (3.5-5.1) mmol/L Chloride (98-107) mmol/L Carbon Dioxide (21.0-32.0) mmol/L BUN (7-18) mg/dL Creatinine (0.51-1.17) mg/dL Est Cr Clr Drug Dosing mL/min Estimated GFR (MDRD) mL/min Glucose (74-106) mg/dL Hemoglobin A1c (4.3-5.7) % Lactic Acid (0.4-2.0) mmol/L Uric Acid (2.6-7.2) mg/dL Calcium (8.5-10.1) mg/dL Magnesium (1.8-2.4) mg/dL Total Bilirubin (0.2-1.0) mg/dL AST (15-37) U/L ALT (12-78) U/L Alkaline Phosphatase (46-116) IU/L Creatine Kinase (26-308) U/L Creatine Kinase Index (0.0-2.5) % CK-MB (CK-2) (0.00-3.60) ng/mL Troponin I (0.000-0.056) ng/mL NT-Pro-B Natriuret Pep (0-125) pg/mL Total Protein (6.4-8.2) g/dL Albumin (3.4-5.0) g/dL Triglycerides (30-150) mg/dL Cholesterol (100-200) mg/dL LDL Cholesterol, Calc (0-100) mg/dL HDL Cholesterol (40-60) mg/dL TSH, Ultra Sensitive (0.358-3.740) mIU/mL Specimen Type Urine Color Urine Appearance Urine pH (5.0-9.0) Ur Specific [place] (1.005-1.030) Urine Protein (NEGATIVE) mg/dL Urine Glucose (UA) (NEGATIVE) mg/dL Urine Ketones (NEGATIVE) mg/dL Urine Occult Blood (NEGATIVE) Urine Nitrite (NEGATIVE) Urine Bilirubin (NEGATIVE) Urine Urobilinogen (0.2-1.0) E.U./dL Ur Leukocyte Esterase (NEGATIVE) Urine RBC /HPF Urine WBC /HPF Ur Epithelial Cells /LPF Urine Bacteria (NONE TO FEW) /HPF Urine Opiates Screen (NEGATIVE) Urine Methadone Screen (NEGATIVE) U Acetaminophen Screen Ur Barbiturates Screen (NEGATIVE) Ur Tricyclics Screen (NEGATIVE) Ur Phencyclidine Scrn (NEGATIVE) Ur Amphetamine Screen (NEGATIVE) U Methamphetamines Scrn (NEGATIVE) U Benzodiazepines Scrn (NEGATIVE) U Cocaine Metab Screen (NEGATIVE) U Marijuana (THC) Screen (NEGATIVE) 12/30/17 12/30/17 12/30/17 Range/Units 21:18 21:18 23:45 WBC (4.0-10.2) K/uL RBC (4.33-5.41) M/uL Hgb (13.1-16.8) g/dL Hct (39.0-49.0) % MCV (84.0-98.0) fL MCH (28.2-33.3) pg MCHC (31.7-36.0) g/dL RDW (11.2-14.1) % Plt Count (150-350) K/uL Neut % (Auto) (45.0-80.0) % Lymph % (Auto) (10.0-50.0) % [place] % (Auto) (2.0-14.0) % Eos % (Auto) (0.0-5.0) % Baso % (Auto) (0.0-2.0) % Neut # (Auto) (1.40-7.00) K/uL Lymph # (Auto) (0.50-3.50) K/uL [place] # (Auto) (0.00-1.00) K/uL Eos # (Auto) (0.00-0.50) K/uL Baso # (Auto) (0.00-0.20) K/uL PT (9.8-11.7) SEC INR APTT (22.1-29.8) SEC D-Dimer, Quantitative (0-400) ng/mL Sodium 142 (136-145) mmol/L Potassium 3.7 (3.5-5.1) mmol/L Chloride 105 (98-107) mmol/L Carbon Dioxide 25.9 (21.0-32.0) mmol/L BUN 18 (7-18) mg/dL Creatinine 1.25 H (0.51-1.17) mg/dL Est Cr Clr Drug Dosing 96.81 mL/min Estimated GFR (MDRD) > 60 mL/min Glucose 95 (74-106) mg/dL Hemoglobin A1c (4.3-5.7) % Lactic Acid 0.7 (0.4-2.0) mmol/L Uric Acid 4.6 (2.6-7.2) mg/dL Calcium 8.6 (8.5-10.1) mg/dL Magnesium 2.0 (1.8-2.4) mg/dL Total Bilirubin 0.5 (0.2-1.0) mg/dL AST 33 (15-37) U/L ALT 43 (12-78) U/L Alkaline Phosphatase 65 (46-116) IU/L Creatine Kinase 508 H (26-308) U/L Creatine Kinase Index 0.7 (0.0-2.5) % CK-MB (CK-2) 3.60 (0.00-3.60) ng/mL Troponin I 0.000 (0.000-0.056) ng/mL NT-Pro-B Natriuret Pep 21 (0-125) pg/mL Total Protein 7.1 (6.4-8.2) g/dL Albumin 3.7 (3.4-5.0) g/dL Triglycerides (30-150) mg/dL Cholesterol (100-200) mg/dL LDL Cholesterol, Calc (0-100) mg/dL HDL Cholesterol (40-60) mg/dL TSH, Ultra Sensitive 1.697 (0.358-3.740) mIU/mL Specimen Type Urincc Urine Color Yellow Urine Appearance Clear Urine pH 7.0 (5.0-9.0) Ur Specific [place] 1.020 (1.005-1.030) Urine Protein Negative (NEGATIVE) mg/dL Urine Glucose (UA) Negative (NEGATIVE) mg/dL Urine Ketones Negative (NEGATIVE) mg/dL Urine Occult Blood Negative (NEGATIVE) Urine Nitrite Negative (NEGATIVE) Urine Bilirubin Negative (NEGATIVE) Urine Urobilinogen 0.2 (0.2-1.0) E.U./dL Ur Leukocyte Esterase Negative (NEGATIVE) Urine RBC 0-5 /HPF Urine WBC Not seen /HPF Ur Epithelial Cells Rare /LPF Urine Bacteria Rare (NONE TO FEW) /HPF Urine Opiates Screen (NEGATIVE) Urine Methadone Screen (NEGATIVE) U Acetaminophen Screen Ur Barbiturates Screen (NEGATIVE) Ur Tricyclics Screen (NEGATIVE) Ur Phencyclidine Scrn (NEGATIVE) Ur Amphetamine Screen (NEGATIVE) U Methamphetamines Scrn (NEGATIVE) U Benzodiazepines Scrn (NEGATIVE) U Cocaine Metab Screen (NEGATIVE) U Marijuana (THC) Screen (NEGATIVE) 12/30/17 12/31/17 12/31/17 Range/Units 23:45 06:57 06:57 WBC 4.4 (4.0-10.2) K/uL RBC 4.88 (4.33-5.41) M/uL Hgb 14.7 (13.1-16.8) g/dL Hct 42.9 (39.0-49.0) % MCV 87.9 (84.0-98.0) fL MCH 30.1 (28.2-33.3) pg MCHC 34.3 (31.7-36.0) g/dL RDW 14.0 (11.2-14.1) % Plt Count 213 (150-350) K/uL Neut % (Auto) 40.0 L (45.0-80.0) % Lymph % (Auto) 41.3 (10.0-50.0) % [place] % (Auto) 13.9 (2.0-14.0) % Eos % (Auto) 3.9 (0.0-5.0) % Baso % (Auto) 0.9 (0.0-2.0) % Neut # (Auto) 1.75 (1.40-7.00) K/uL Lymph # (Auto) 1.81 (0.50-3.50) K/uL [place] # (Auto) 0.61 (0.00-1.00) K/uL Eos # (Auto) 0.17 (0.00-0.50) K/uL Baso # (Auto) 0.04 (0.00-0.20) K/uL PT (9.8-11.7) SEC INR APTT (22.1-29.8) SEC D-Dimer, Quantitative (0-400) ng/mL Sodium 140 (136-145) mmol/L Potassium 4.1 (3.5-5.1) mmol/L Chloride 105 (98-107) mmol/L Carbon Dioxide 28.8 (21.0-32.0) mmol/L BUN 14 (7-18) mg/dL Creatinine 1.34 H (0.51-1.17) mg/dL Est Cr Clr Drug Dosing 90.31 mL/min Estimated GFR (MDRD) > 60 mL/min Glucose 92 (74-106) mg/dL Hemoglobin A1c (4.3-5.7) % Lactic Acid (0.4-2.0) mmol/L Uric Acid (2.6-7.2) mg/dL Calcium 9.0 (8.5-10.1) mg/dL Magnesium (1.8-2.4) mg/dL Total Bilirubin 0.6 (0.2-1.0) mg/dL AST 32 (15-37) U/L ALT 40 (12-78) U/L Alkaline Phosphatase 62 (46-116) IU/L Creatine Kinase 398 H (26-308) U/L Creatine Kinase Index 0.7 (0.0-2.5) % CK-MB (CK-2) 2.80 (0.00-3.60) ng/mL Troponin I 0.000 (0.000-0.056) ng/mL NT-Pro-B Natriuret Pep (0-125) pg/mL Total Protein 6.9 (6.4-8.2) g/dL Albumin 3.7 (3.4-5.0) g/dL Triglycerides 48 (30-150) mg/dL Cholesterol 156 (100-200) mg/dL LDL Cholesterol, Calc 104 H (0-100) mg/dL HDL Cholesterol 42 (40-60) mg/dL TSH, Ultra Sensitive (0.358-3.740) mIU/mL Specimen Type Urine Color Urine Appearance Urine pH (5.0-9.0) Ur Specific [place] (1.005-1.030) Urine Protein (NEGATIVE) mg/dL Urine Glucose (UA) (NEGATIVE) mg/dL Urine Ketones (NEGATIVE) mg/dL Urine Occult Blood (NEGATIVE) Urine Nitrite (NEGATIVE) Urine Bilirubin (NEGATIVE) Urine Urobilinogen (0.2-1.0) E.U./dL Ur Leukocyte Esterase (NEGATIVE) Urine RBC /HPF Urine WBC /HPF Ur Epithelial Cells /LPF Urine Bacteria (NONE TO FEW) /HPF Urine Opiates Screen Negative (NEGATIVE) Urine Methadone Screen Negative (NEGATIVE) U Acetaminophen Screen Negative Ur Barbiturates Screen Negative (NEGATIVE) Ur Tricyclics Screen Negative (NEGATIVE) Ur Phencyclidine Scrn Negative (NEGATIVE) Ur Amphetamine Screen Negative (NEGATIVE) U Methamphetamines Scrn Negative (NEGATIVE) U Benzodiazepines Scrn Negative (NEGATIVE) U Cocaine Metab Screen Negative (NEGATIVE) U Marijuana (THC) Screen Positive (NEGATIVE) 12/31/17 Range/Units 06:57 WBC (4.0-10.2) K/uL RBC (4.33-5.41) M/uL Hgb (13.1-16.8) g/dL Hct (39.0-49.0) % MCV (84.0-98.0) fL MCH (28.2-33.3) pg MCHC (31.7-36.0) g/dL RDW (11.2-14.1) % Plt Count (150-350) K/uL Neut % (Auto) (45.0-80.0) % Lymph % (Auto) (10.0-50.0) % [place] % (Auto) (2.0-14.0) % Eos % (Auto) (0.0-5.0) % Baso % (Auto) (0.0-2.0) % Neut # (Auto) (1.40-7.00) K/uL Lymph # (Auto) (0.50-3.50) K/uL [place] # (Auto) (0.00-1.00) K/uL Eos # (Auto) (0.00-0.50) K/uL Baso # (Auto) (0.00-0.20) K/uL PT (9.8-11.7) SEC INR APTT (22.1-29.8) SEC D-Dimer, Quantitative (0-400) ng/mL Sodium (136-145) mmol/L Potassium (3.5-5.1) mmol/L Chloride (98-107) mmol/L Carbon Dioxide (21.0-32.0) mmol/L BUN (7-18) mg/dL Creatinine (0.51-1.17) mg/dL Est Cr Clr Drug Dosing mL/min Estimated GFR (MDRD) mL/min Glucose (74-106) mg/dL Hemoglobin A1c 5.4 (4.3-5.7) % Lactic Acid (0.4-2.0) mmol/L Uric Acid (2.6-7.2) mg/dL Calcium (8.5-10.1) mg/dL Magnesium (1.8-2.4) mg/dL Total Bilirubin (0.2-1.0) mg/dL AST (15-37) U/L ALT (12-78) U/L Alkaline Phosphatase (46-116) IU/L Creatine Kinase (26-308) U/L Creatine Kinase Index (0.0-2.5) % CK-MB (CK-2) (0.00-3.60) ng/mL Troponin I (0.000-0.056) ng/mL NT-Pro-B Natriuret Pep (0-125) pg/mL Total Protein (6.4-8.2) g/dL Albumin (3.4-5.0) g/dL Triglycerides (30-150) mg/dL Cholesterol (100-200) mg/dL LDL Cholesterol, Calc (0-100) mg/dL HDL Cholesterol (40-60) mg/dL TSH, Ultra Sensitive (0.358-3.740) mIU/mL Specimen Type Urine Color Urine Appearance Urine pH (5.0-9.0) Ur Specific [place] (1.005-1.030) Urine Protein (NEGATIVE) mg/dL Urine Glucose (UA) (NEGATIVE) mg/dL Urine Ketones (NEGATIVE) mg/dL Urine Occult Blood (NEGATIVE) Urine Nitrite (NEGATIVE) Urine Bilirubin (NEGATIVE) Urine Urobilinogen (0.2-1.0) E.U./dL Ur Leukocyte Esterase (NEGATIVE) Urine RBC /HPF Urine WBC /HPF Ur Epithelial Cells /LPF Urine Bacteria (NONE TO FEW) /HPF Urine Opiates Screen (NEGATIVE) Urine Methadone Screen (NEGATIVE) U Acetaminophen Screen Ur Barbiturates Screen (NEGATIVE) Ur Tricyclics Screen (NEGATIVE) Ur Phencyclidine Scrn (NEGATIVE) Ur Amphetamine Screen (NEGATIVE) U Methamphetamines Scrn (NEGATIVE) U Benzodiazepines Scrn (NEGATIVE) U Cocaine Metab Screen (NEGATIVE) U Marijuana (THC) Screen (NEGATIVE) [facility] Results - Last 24 hrs: Urine culture and sensitivity pending Microbiology 12/30/17 21:28 Nasal, Left Influenza Type A Antigen Screen - Final NEGATIVE INFLUENZA A VIRUS AG 12/30/17 21:28 Nasal, Left Influenza Type B Antigen Screen - Final NEGATIVE INFLUENZA B VIRUS AG Med Orders - Current: Current Medications Acetaminophen (Tylenol) 650 mg PO Q4H PRN PRN Reason: Pain Lactated Ringer's (Ringers, Lactated) 1,000 mls @ 150 mls/hr IV ASDIRECTED JOE Last Admin: 12/31/17 06:08 Dose: 150 mls/hr Sodium Chloride (Saline Flush) 10 ml FLUSH ASDIRECTED PRN PRN Reason: Keep Vein Open Last Admin: 12/30/17 21:39 Dose: 10 ml Sodium Chloride (Saline Flush) 10 ml FLUSH Q12HR PRN PRN Reason: Keep Vein Open Temazepam (Restoril) 15 mg PO BEDTIME PRN PRN Reason: Insomnia Discontinued Medications Famotidine (Pepcid) 40 mg IVPUSH ONETIME ONE Stop: 12/30/17 21:16 Last Admin: 12/30/17 21:39 Dose: 40 mg Influenza Virus Vaccine (Pharmacy To Dose - Influenza Vaccine) 1 each IM ONETIME ONE Stop: 12/30/17 23:15 Influenza Virus Vaccine (Fluzone Quad [id number]) 60 mcg IM .ONCE ONE Stop: 12/30/17 23:31 - Exam Quality Assessment: Reports: DVT Prophylaxis. Denies: Supplemental Oxygen, Urine Catheter, Skin Breakdown, Restraints General: Reports: Alert, Oriented, Cooperative, No Acute Distress HEENT: Reports: Pupils Equal, Pupils Reactive, EOMI, Mucous Membr. Moist/[place]. Denies: Scleral Icterus Neck: Reports: Supple, Trachea Midline, No JVD, No Thyromegaly, +2 Carotid Pulse wo Bruit. Denies: Lymphadenopathy Lungs: Reports: Clear to Auscultation, Normal Respiratory Effort. Denies: Rub Cardiovascular: Reports: Regular Rate, Regular Rhythm, No Murmurs. Denies: Gallops, Rubs GI/Abdominal Exam: Normal Bowel Sounds, Soft, Non-Tender, No Organomegaly, No Distention, No Abnormal Bruit, No Mass. No: Guarding (Male) Exam: Deferred Rectal (Males) Exam: Deferred Back Exam: Reports: Normal Inspection, Full Range of Motion. Denies: CVA Tenderness (L), CVA Tenderness (R), Muscle Spasm Extremities: Normal Inspection, Normal Range of Motion, Non-Tender, No Pedal Edema, Normal Capillary Refill. No: Ben's Sign Skin: Reports: Warm, Dry, Intact. Denies: Ecchymosis Neurological: Reports: No New Focal Deficit Psy/Mental Status: Reports: Alert, Anxious (Mild), Depressed (Borderline). Denies: Agitated, Suicidal Ideation, Homicidal Ideation, Hallucinations, Withdrawal Symptoms EKG INTERPRETATION EKG Date: 12/31/17 Time: 07:16 Rhythm: NSR (With mild sinus arrhythmia) Rate (Beats/Min): 67 [place]: Normal (Neutral) P-Wave: Present (Short VT interval with poor R-wave progression in the anterior leads and no delta waves noted) QRS: Normal (0.08 seconds with T-wave inversion in leads V1 and 3 with resolution of previous nonspecific ST changes in leads 3 and aVF) ST-T: Normal QT: Normal VT/PQ Interval: 0.12 seconds Comparison: Change From Previous EKG (As above since 12/30/17) EKG Interpretation Comments: 1. No acute ischemic changes with resolution of previous nonspecific inferior wall changes 2. Short VT interval *Q Meaningful Use (DIS) - VTE *Q VTE Criteria *Q: - Stroke *Q Stroke Criteria *Q: - AMI *Q AMI Criteria *Q:
[2017-12-31] MEDS ORDERED: FLU Vacc QS 2017-18 (36mos UP)/PF 60 MCG/0.5 ML Syringe IM ONE (10:00)
[2017-12-31 11:21] VITALS: BP 118/63
== END 2017-12-31 10:45 | disposition home or self-care (01) ==
LOC: LL.ED 20:50 → LL.MS 22:10
PROVIDERS: ADMIT Family Medicine; ATTEND Family Medicine
DX: R55 Syncope and collapse (principal); R42 Dizziness and giddiness; R74.8 Abnormal levels of other serum enzymes; M15.0 Primary generalized (osteo)arthritis; N18.9 Chronic kidney disease, unspecified; F19.90 Other psychoactive substance use, unspecified, uncomplicated; F17.210 Nicotine dependence, cigarettes, uncomplicated; Z71.6 Tobacco abuse counseling
CPT/HCPCS: 36415; 70450; 71045; 80053; 80061; 80305; 81001; 82550; 82553; 83036; 83605; 83735; 83874; 83880; 84146; 84443; 84484; 84550; 85025; 85379; 85610; 85730; 87086; 87804; 93005; 96361; 96374; 99285; G0378; J7050; J7120; 90686; S0028

== ENCOUNTER 2019-04-02 07:48 | Emergency (ER) | payer MEDICAID, OTHER ==
[2019-04-02 07:54] VITALS: BP 137/88
[2019-04-02] MEDS ORDERED: GI Cocktail Oral Solution 30 ML PO ONE (08:08)
[2019-04-02 08:36] LABS: CHLORIDE,CL 107 mmol/L (98-107); SODIUM,NA 142 mmol/L (136-145)
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
[2019-04-02] MEDS ORDERED: Magnesium Citrate Solution 296 ML Bottle PO ONE (09:43)
== END 2019-04-02 10:05 | disposition home or self-care (01) ==
LOC: LL.ED 07:48 → SUPCPDRO 07:48 → LL.ED 10:05
DX: R07.89 Other chest pain (principal); N18.9 Chronic kidney disease, unspecified; F17.210 Nicotine dependence, cigarettes, uncomplicated
CPT/HCPCS: 36415; 74022; 80053; 81001; 82150; 83690; 83735; 85025; 99284-25; A9270-GY